=== PATIENT | male | born 1975 | race Two or more races ===

== ENCOUNTER 2020-11-20 10:24 | Outpatient (CLI) | payer OTHER | END 2020-11-20 23:59 | disposition home or self-care (01) | LOC: STAR 10:24 | PROVIDERS: ATTEND Orthopaedic Surgery | DX: Z20.822 Contact with and (suspected) exposure to COVID-19 (principal); S83.232A Complex tear of medial meniscus, current injury, left knee, initial encounter; M25.562 Pain in left knee; X58.XXXA Exposure to other specified factors, initial encounter; Y92.89 Other specified places as the place of occurrence of the external cause; Y93.89 Activity, other specified; Y99.8 Other external cause status | CPT/HCPCS: U0003 ==

== ENCOUNTER 2020-11-26 05:27 | Day surgery (SDC) | payer OTHER ==
[~2020-11-26] VITALS: Ht 170.2 cm; Wt 72.0 kg
[2020-11-26] MEDS ORDERED: LACTATED RINGERS 1,000 ML IV SCH (06:00)
[2020-11-26] MEDS ORDERED: CHLORHEXIDINE 15 ML UDC PO ONE (06:00)
[2020-11-26] MEDS ORDERED: EPINEPHRINE 1 MG/ML, 1ML ONE (06:28)
[2020-11-26] MEDS ORDERED: ROPIvacaine/PF 0.5%, 30 ML ONE (06:28)
[2020-11-26] MEDS ORDERED: LIDOCAINE/PF 1%, 30ML ONE (06:28)
[2020-11-26] MEDS ORDERED: LIDOCAINE-MPF 2% ,5ML ONE (06:37)
[2020-11-26] MEDS ORDERED: FENTANYL PF 100 MCG/2ML ONE (06:37)
[2020-11-26] MEDS ORDERED: SODIUM CHLORIDE 0.9% PF 10ML ONE (06:37)
[2020-11-26] MEDS ORDERED: MIDAZOLAM 1 MG/ML, 2ML ONE (06:37)
[2020-11-26] MEDS ORDERED: ONDANSETRON 2MG/ML, 2ML ONE (06:45)
[2020-11-26] MEDS ORDERED: DEXAMETHASONE 4 MG/ML, 1ML ONE (06:45)
[2020-11-26] MEDS ORDERED: PROPOFOL 10 MG/ML, 20ML ONE (06:45)
[2020-11-26] MEDS ORDERED: CEFAZOLIN 1,000 MG ONE (06:45)
[2020-11-26] MEDS ORDERED: METHOCARBAMOL 1,000 MG in DEXTROSE 5% 100 ML IV PRN (07:00)
[2020-11-26] MEDS ORDERED: OXYcodone 5 MG/5 ML ORAL.SOL UDC PO PRN (07:00)
[2020-11-26] MEDS ORDERED: EPHEDRINE 50 MG/ML, 1ML IVPush PRN (07:00)
[2020-11-26] MEDS ORDERED: PROMETHAZINE 25 MG/ML, 1ML IVPush PRN (07:00)
[2020-11-26] MEDS ORDERED: ONDANSETRON 2MG/ML, 2ML IVPush PRN (07:00)
[2020-11-26] MEDS ORDERED: hydrALAzine 20 MG/ML, 1ML IV PRN (07:00)
[2020-11-26] MEDS ORDERED: ACETAMINOPHEN 325 MG TABLET PO PRN (07:00)
[2020-11-26] MEDS ORDERED: HYDROmorphone 1 MG/ML, 1ML INJ IVPush PRN (07:00)
[2020-11-26] MEDS ORDERED: FENTANYL PF 100 MCG/2ML IV PRN (07:00)
[2020-11-26] MEDS ORDERED: LABETALOL 5MG/ML, 20ML IV PRN (07:00)
== END 2020-11-26 09:30 | disposition home or self-care (01) ==
LOC: OUT 05:27
PROVIDERS: ATTEND Orthopaedic Surgery
DX: S83.212A Bucket-handle tear of medial meniscus, current injury, left knee, initial encounter (principal); M94.262 Chondromalacia, left knee; Z87.891 Personal history of nicotine dependence; X58.XXXA Exposure to other specified factors, initial encounter; Y93.17 Activity, water skiing and wake boarding; Y92.89 Other specified places as the place of occurrence of the external cause; Y99.8 Other external cause status
CPT/HCPCS: 29881; J0171; J0690; J1100; J2250; J2405; J2704; J2795; J3010; J7120